=== PATIENT | female | born 1980 | race Caucasian/White ===

== ENCOUNTER 2016-10-14 02:08 | Emergency (ER) | payer OTHER ==
[~2016-10-14] VITALS: Ht 172.7 cm; Wt 72.7 kg
[~2016-10-14 02:08] MED LIST: IBUP-1152 PO; LANOHPA TOP; TUCPAD TOP
[2016-10-14 02:18] VITALS: BP 143/98; PULSE 89; RESP 20; O2SAT 99
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
[2016-10-14] MEDS ORDERED: ONDA8TAB10 PO (03:33)
[2016-10-14] MEDS ORDERED: Ondansetron 8 mg ODT Tablet PO ONE (03:45)
[2016-10-14 04:01] VITALS: BP 143/98; PULSE 89; RESP 20; O2SAT 99
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
== END 2016-10-14 04:02 | disposition home or self-care (01) ==
LOC: SED 02:08
DX: S06.0X0A Concussion without loss of consciousness, initial encounter (principal); S60.211A Contusion of right wrist, initial encounter; Y04.0XXA Assault by unarmed brawl or fight, initial encounter; Y93.89 Activity, other specified; Y99.8 Other external cause status; Y92.019 Unspecified place in single-family (private) house as the place of occurrence of the external cause; F12.10 Cannabis abuse, uncomplicated; Z04.8 Encounter for examination and observation for other specified reasons